=== PATIENT | male | born 1985 | race Two or more races ===

== ENCOUNTER → 2019-12-09 | Outpatient (CLI) | payer MEDICAID ==
--- NOTE | 2019-12-09 10:39 | RADIOLOGY REPORT (SQ) ---
EXAM DESCRIPTION: U/S ABDOMEN LIMITED W/O DOP IMAGES COMPLETED DATE/TIME: 12/09/2019 9:49 am REASON FOR STUDY: GENERALIZED INTRA-ABD AND PELVIC SWELLING, MASS AND LUMP R19.07 GENERALIZED INTRA -ABD AND PELVIC SWELLING, MASS AND L COMPARISON: None. TECHNIQUE: Dynamic and static grayscale images acquired of the localized site of clinical concern an d recorded on PACS. Additional selected color Doppler and spectral images recorded. SITE OF CONCERN: Palpable lumps left lower and right upper quadrants. LIMITATIONS: None. FINDINGS: There are 2 heterogeneous hypoechoic solid lesions in the right upper quadrant and 2 solid similar lesions in the left lower quadrant. Largest measures about 5.7 x 2.3 x 5.0 cm in the left l ower quadrant. No internal flow on color Doppler. IMPRESSION: Solid non hypervascular dermatologic masses. TECHNICAL DOCUMENTATION: JOB ID: [id number] 2010 [employer]- All Rights Reserved Reading location - IP/workstation name: [email or web address]
== END ==
LOC: RAD 08:49
PROVIDERS: ATTEND Physician Assistant
DX: R19.07 Generalized intra-abdominal and pelvic swelling, mass and lump (principal)
CPT/HCPCS: 76705